=== PATIENT | female | born 1955 | race Caucasian/White ===

== ENCOUNTER → 2016-09-04 | Outpatient (CLI) | payer OTHER ==
--- NOTE | 2016-09-04 15:18 | MA ---
Bilateral Screening Digital Mammograms With iCAD, With and Without Implant Displaced Views Clinical Indications: Bilateral augmentation implants. Routine screening mammograms. Technique: Standard digital with and without implant displaced cephalocaudal and mediolateral obliqu e projections were obtained. Total of 8 digital mammograms. This examination was processed by the [facility] computer-aided detection system. Comparison: 2015, 2013, 2010, 2010, 2009. Breast density: 3: 50 to 75%. Findings: Computer-aided detection was reviewed. No suspicious cluster of microcalcifications, new d ominant densities or architectural distortion. Bilateral augmentation implants identified. Impression: 1. ACR BI-RADS 2: Benign findings. 2. No mammographic evidence of malignancy. 3. Bilateral augmentation implants limit the amount of breast tissue available for evaluation. Recommendation: 1. If physical exam is negative, recommend annual mammograms with next mammogram August 2017. 2. Bilateral augmentation implants limit the amount of breast tissue available for interpretation and therefore limits the sensitivity of mammography in this patient. If there is a clinically palpable a bnormality, recommend additional imaging with ultrasound, if clinically indicated. [facility] will send a result letter to the patient. Negative mammography should not preclude additional workup of a clinically suspicious finding. The patient's information is entered into a reminder system with a target due date for her next mammo gram.
== END ==
LOC: FIMAGING 13:13
DX: Z12.31 Encounter for screening mammogram for malignant neoplasm of breast (principal)
CPT/HCPCS: G0202

== ENCOUNTER → 2017-10-03 | Outpatient (CLI) | payer OTHER | LOC: FIMAGING 15:07 | PROVIDERS: ATTEND Obstetrics & Gynecology | DX: Z12.31 Encounter for screening mammogram for malignant neoplasm of breast (principal) ==

== ENCOUNTER → 2018-10-16 | Outpatient (CLI) | payer OTHER | LOC: FIMAGING 13:16 | PROVIDERS: ATTEND Obstetrics & Gynecology | DX: Z12.31 Encounter for screening mammogram for malignant neoplasm of breast (principal); Z98.82 Breast implant status ==